=== PATIENT | male | born 1990 | race Two or more races ===

== ENCOUNTER 2024-01-22 16:09 | Emergency (ER) | payer OTHER ==
[~2024-01-22] VITALS: Ht 180.3 cm; Wt 78.0 kg
[2024-01-22 18:34] VITALS: BP 135/62; PULSE 83; RESP 16; TEMP 98.2; O2SAT 96
[2024-01-22] MEDS ORDERED: IBUP-1456 PO (18:50)
== END 2024-01-22 19:08 | disposition home or self-care (01) ==
LOC: ER 16:09
DX: S83.92XA Sprain of unspecified site of left knee, initial encounter (principal); X58.XXXA Exposure to other specified factors, initial encounter; Y93.89 Activity, other specified; Y92.69 Other specified industrial and construction area as the place of occurrence of the external cause; Y99.8 Other external cause status
CPT/HCPCS: 29505; 73562